=== PATIENT | male | born 1985 | race Caucasian/White ===

== ENCOUNTER 2018-04-11 00:41 | Emergency (ER) | payer OTHER ==
[~2018-04-11] VITALS: Ht 188 cm; Wt 142.9 kg
[2018-04-11 00:49] VITALS: BP 177/101
[2018-04-11] MEDS ORDERED: cloNIDine 0.1 MG TAB PO ONE (01:10)
[2018-04-11] MEDS ORDERED: KETOROLAC 60 MG/2 ML VIAL IM ONE (01:40)
[2018-04-11 02:12] VITALS: BP 179/90
== END 2018-04-11 02:12 | disposition home or self-care (01) ==
LOC: MED 00:41
DX: R51 Headache (principal); E11.9 Type 2 diabetes mellitus without complications; I10 Essential (primary) hypertension
CPT/HCPCS: 82948; 96372; 99283; J1885

== ENCOUNTER 2018-09-09 02:55 | Emergency (ER) | payer OTHER ==
[~2018-09-09] VITALS: Ht 188 cm; Wt 139.7 kg
[2018-09-09 03:10] VITALS: BP 156/90
--- NOTE | 2018-09-09 03:20 | NUR ---
PT BIB SELF C/O N/D AND ABD PAIN. PT STATES SUDDEN ONSET OF VOMITING X3 HOURS 5 TIMES, PT DESCRIBES FIRST EMESIS FOOD AND OTHER EMESIS WAS THIN AND YELLOW; ABD PAIN 7/10 WHEN VOMITING. 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 PT SPEAKING IN CLEAR AND COMPLETE SENTENCES. PENDING ER MD NEUMANN. PMH: DIABETES, HTN
--- NOTE | 2018-09-09 03:50 | NUR ---
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
--- NOTE | 2018-09-09 03:58 | NUR ---
HOB ELEVATED, FRIEND AT BEDSIDE. PT ALERT TO VOICE.
[2018-09-09] MEDS ORDERED: NACL 0.9% 1,000 ML IV ONE (05:45)
[2018-09-09 05:50] LABS: BASOPHILS # (AUTO) 0.1 K/uL (0.00-0.22); EOSINOPHILS # (AUTO) 0.2 K/uL (0-0.4); EOSINOPHILS % (AUTO) 2.3 % (0.0-4.0); HEMATOCRIT 48.5 % (36-52); HEMOGLOBIN 16.7 g/dL (12.0-18.0); LYMPHOCYTES # (AUTO) 1.7 K/uL (2.0-11.5); LYMPHOCYTES % (AUTO) 20.6 % (20.5-51.1); MEAN CORPUSCULAR HEMOGLOBIN 29 pg (27-31); MEAN CORPUSCULAR HGB CONC 34 g/dL (33-37); MEAN CORPUSCULAR VOLUME 85.3 fL (80-94); MONOCYTES # (AUTO) 0.5 K/uL (0.8-1.0); MONOCYTES % (AUTO) 6.5 % (1.7-9.3); NEUTROPHILS # (AUTO) 5.7 K/uL (1.8-7.7); NEUTROPHILS % (AUTO) 69.6 % (42.2-75.2); PLATELET COUNT (AUTO) 261 K/uL (140-450); RED BLOOD CELL COUNT(AUTO) 5.68 MIL/uL (4.20-6.10); RED CELL DISTRIBUTION WIDTH 12.9 % (11.6-13.7); WHITE BLOOD COUNT (AUTO) 8.2 K/uL (4.8-10.8)
--- NOTE | 2018-09-09 05:53 | NUR ---
DR. CHAU AT BEDSIDE FOR EVALUATION AT THIS TIME.
[2018-09-09 05:54] LABS: ACETONE, SERUM NEGATIVE (NEGATIVE)
[2018-09-09 06:01] LABS: ALBUMIN 3.9 g/dL (3.4-5.0); ANION GAP 17.6 (8-16); ASPARTATE AMINOTRANSFERASE 30 U/L (15-37); CHLORIDE 97 mmol/L (98-107); CREATININE 1.3 mg/dL (0.7-1.3); GFR ARICAN-AMERICAN 83 mL/min (>90); GLUCOSE 300 mg/dL (74-106); LIPASE 118 U/L (73-393); MAGNESIUM 1.7 mg/dL (1.8-2.4); POTASSIUM 3.6 mmol/L (3.5-5.1); SODIUM SERUM 136 mmol/L (136-145); TOTAL BILIRUBIN 0.7 mg/dL (0.0-1.0); UREA NITROGEN, BLOOD 18 mg/dL (7-18)
[2018-09-09] MEDS ORDERED: INSULIN REGULAR, HUMAN 100 UNIT/ML VIAL IVP ONE (06:25)
[2018-09-09] MEDS ORDERED: KETOROLAC 15 MG/ML VIAL IVP STA (06:34)
[2018-09-09] MEDS ORDERED: INSULIN REGULAR, HUMAN 100 UNIT/ML VIAL IVP STA (06:34)
--- NOTE | 2018-09-09 07:10 | NUR ---
Pt report given to STEVE Caldwell. Transfer of care at this time.
[2018-09-09 08:45] LABS: APPEARANCE,URINE CLEAR (CLEAR); BILIRUBIN,URINE NEGATIVE (NEGATIVE); BLOOD, URINE TRACE-L (NEGATIVE); COLOR,URINE YELLOW (YELLOW); LEUKOCYTE ESTERASE ,URINE TRACE (NEGATIVE); NITRITE, URINE NEGATIVE (NEGATIVE); UGLUCOSE 3+ (NEGATIVE)
[2018-09-09 09:01] VITALS: BP 176/100
--- NOTE | 2018-09-09 09:02 | NUR ---
Patient discharged with v/s stable. Written and verbal after care instructions given and explained. Patient verbalized understanding. Ambulatory with steady gait. All questions addressed prior to discharge. Advised to follow up with PMD.
[2018-09-09 09:17] LABS: RBC,URINE 0-5 /HPF (0-5); WBC,URINE 0-5 /HPF (0-5)
== END 2018-09-09 09:02 | disposition home or self-care (01) ==
LOC: MED 02:55
DX: E11.65 Type 2 diabetes mellitus with hyperglycemia (principal); I10 Essential (primary) hypertension
CPT/HCPCS: 36415; 36600; 80053; 81001; 82009; 82803; 82948; 83690; 83735; 85025; 96361; 96374; 96375; 99283; J1815; J1885; J7030